=== PATIENT | male | born 1985 | race African-American/Black ===

== ENCOUNTER → 2017-02-16 | Outpatient (CLI) | payer BC ==
--- NOTE | 2017-02-16 13:47 | KCIC ---
Indication: Left lower extremity swelling. Grayscale, color-flow and duplex Doppler evaluation of left lower extremity deep venous system was performed. There is no evidence of a left lower extremity DVT. Left lower extremity deep venous system shows normal compressibility with normal response to augmentation and Valsalva. There is some edema identified in the tissues of the medial calf. There is an area of hypoechogenicity noted in the superficial tissues measuring approximately 7 mm x 5 mm. This is indeterminate. This could potentially represent a thrombosed superficial vein. No other abnormality is seen. IMPRESSION: 1. No evidence of left lower extremity DVT. 2. Hypoechoic nodule within the subcutaneous tissues of the medial left calf, indeterminate. This could potentially represent a thrombosed superficial vein. Electronically signed by: Bharathi Yang MD (02/16/2017 1:43 PM) [id number]
== END | disposition home or self-care (01) ==
LOC: KCIC US 12:12
PROVIDERS: ATTEND Physician Assistant Surgical
DX: M79.89 Other specified soft tissue disorders (principal)
CPT/HCPCS: 93971